=== PATIENT | male | born 1970 ===

== ENCOUNTER 2017-08-02 17:19 | Emergency (ER) | payer MEDICAID, OTHER ==
[2017-08-02 17:19] VITALS: BMI 26.6
[2017-08-02 17:39] VITALS: BP 151/76; RESP 18; TEMP 98.6; O2SAT 99
[2017-08-02 19:01] LABS: BASO # 0.1 K/uL (0.0-0.2); BASO % 1.3 % (0.0-2.0); EOS # 0.3 K/uL (0.0-0.7); EOS % 2.6 % (0.0-4.0); HEMATOCRIT 40.2 % (35.0-51.0); LYMPH # 3.7 K/uL (1.0-4.3); LYMPH % 35.5 % (20.0-40.0); MEAN CELL VOLUME 89.9 fl (80.0-94.0); MEAN CORPUSCULAR HEMOGLOBIN 30.1 pg (27.0-31.0); MEAN CORPUSCULAR HGB CONC 33.5 g/dL (33.0-37.0); MEAN PLATELET VOLUME 9.9 fl (7.2-11.7); MONO # 0.9 K/uL (0.0-0.8); MONO % 8.7 % (0.0-10.0); NEUT # 5.4 K/uL (1.8-7.0); NEUT % 51.9 % (50.0-75.0); NRBC % 3.9 % (0.0-0.0); RED CELL DISTRIBUTION WIDTH 12.9 % (11.5-14.5); WHITE BLOOD COUNT 10.4 K/uL (4.8-10.8)
--- NOTE | 2017-08-02 19:04 | ED PDOC ---
HPI: SOB/CHF/COPD Time Seen by Provider: 08/02/17 17:45 Chief Complaint (Nursing): Shortness Of Breath Chief Complaint (Provider): Shortness Of Breath History Per: Patient History/Exam Limitations: no limitations Onset/Duration Of Symptoms: Hrs Current Symptoms Are (Timing): Gone Now Additional Complaint(s): Deangelo Walter is a 46 year old male with a history of anxiety that presents to the ED with a chief complaint of intermittent feelings of anxiety and shortness of breath that he has been experiencing since this morning. Patient reports that due to his long history of anxiety he used to take Prozac and Paxil , but decided to stop taking the medication on his own. He states that he has been going through a lot of stress recently, and admits to taking heroin today in an attempt "to calm himself." Patient is concerned that he may have a "chemical pneumonia," as he had one last year, but denies any cough, fever, hemoptysis, chest pain, leg pain, suicidal ideation, homicidal ideation, hallucinations, or trauma. He states that he is currently without any symptoms. Past Medical History Reviewed: Historical Data, Nursing Documentation, Vital Signs Vital Signs: Last Vital Signs Temp 98.6 F 08/02/17 17:32 Pulse 49 L 08/02/17 19:29 Resp 18 08/02/17 17:32 BP 151/76 H 08/02/17 17:32 Pulse Ox 99 08/02/17 19:29 - Medical History PMH: Anxiety, Depression, Hepatitis (Hep-C), Post Traumatic Stress Disorder, Schizophrenia Denies: Diabetes, HIV, HTN, Chronic Kidney Disease, Seizures, Sexually Transmitted Disease - Family History Family History: States: Unknown Family Hx - Social History Current smoker - smoking cessation education provided: Yes SMOKER/PACKS PER DAY:: 1 (for the past 20 years) Drugs: Other (heroin) - Immunization History Hx Tetanus Toxoid Vaccination: No Hx Influenza Vaccination: No Hx Pneumococcal Vaccination: No - Home Medications Home Medications: Ambulatory Orders Medication Instructions Recorded No Known Home Med 12/30/16 - Allergies Allergies/Adverse Reactions: Allergies Allergy/AdvReac Type Severity Reaction Status Date / Time No Known Allergies Allergy Verified 02/02/17 14:45 Review of Systems Constitutional: Negative for: Fever, Other (denies trauma) Cardiovascular: Negative for: Chest Pain Respiratory: Positive for: Shortness of Breath (no currently experiencing). Negative for: Cough Gastrointestinal: Negative for: Other (denies hemoptysis) Musculoskeletal: Negative for: Leg Pain Psych: Positive for: Anxiety (no currently experiencing). Negative for: Suicidal ideation (denies SI, HI), Other (denies hallucinations) Physical Exam - Reviewed Nursing Documentation Reviewed: Yes Vital Signs Reviewed: Yes - Physical Exam Appears: Positive for: Non-toxic, No Acute Distress Head Exam: Positive for: ATRAUMATIC, NORMOCEPHALIC Skin: Positive for: Normal Color, Warm Eye Exam: Positive for: Normal appearance, EOMI, PERRL Cardiovascular/Chest: Positive for: Regular Rate, Rhythm. Negative for: Murmur Respiratory: Positive for: Normal Breath Sounds. Negative for: Wheezing Gastrointestinal/Abdominal: Positive for: Normal Exam, Soft. Negative for: Tenderness Extremity: Positive for: Normal ROM. Negative for: Swelling Neurologic/Psych: Positive for: Alert, distribution clerk II-XII, Oriented. Negative for: Motor/Sensory Deficits - Laboratory Results Result Diagrams: 08/02/17 18:40 08/02/17 18:40 - ECG ECG: Positive for: Interpreted By Me ECG Rhythm: Positive for: Sinus Bradycardia. Negative for: ST/T Changes Rate: 49 O2 Sat by Pulse Oximetry: 99 (RA) Pulse Ox Interpretation: Normal - Radiology X-Ray: Interpreted by Me (CXR) X-Ray Interpretation: No Acute Disease - Progress ED Course And Treament: 1927 D-Dimer: 349 CTA chest r/o PE ordered. Medical Decision Making Medical Decision Making: Impression: Anxiety Plan: * EKG * Chest X-Ray * CMP * CBC * D-Dimer * Troponin * Alcohol * Urine drug screen * Reevaluation Scribe Attestation: Documented by Anastacia James, acting as a scribe for Salvatore Bustamante PA-C. Provider Scribe Attestation: All medical record entries made by the Scribe were at my direction and personally dictated by me. I have reviewed the chart and agree that the record accurately reflects my personal performance of the history, physical exam, medical decision making, and the department course for this patient. I have also personally directed, reviewed, and agree with the discharge instructions and disposition. Disposition - Clinical Impression Clinical Impression: Anxiety, Dyspnea - Patient ED Disposition Is Patient to be Admitted: Transfer of Care (Signed out to Anish STOVER pending CTA results and final disposition.) - Disposition Disposition Time: 20:00 Condition: STABLE Forms: [facility] (Slovenian)
[2017-08-02 19:17] LABS: ALB/GLOB RATIO 1.3 (1.0-2.1); ALCOHOL SERUM < 10 mg/dl (0-10); ALKALINE PHOSPHATASE 66 U/L (38-126); ALT/SGPT 45 U/L (21-72); AST/SGOT 38 U/L (17-59); BILIRUBIN,TOTAL 0.4 mg/dl (0.2-1.3); BLOOD UREA NITROGEN 12 mg/dl (9-20); CALCIUM 9.7 mg/dL (8.4-10.2); CARBON DIOXIDE 28 mmol/L (22-30); CHLORIDE 102 mmol/L (98-107); GFR AFRICAN-AMERICAN > 60; GLUCOSE,RANDOM 93 mg/dL (75-110); POTASSIUM 4.4 MMOL/L (3.6-5.0); SODIUM 140 mmol/l (132-148); TOTAL PROTEIN 7.7 G/DL (6.3-8.2)
[2017-08-02 19:30] VITALS: PULSE 49
[2017-08-02] MEDS ORDERED: Iodixanol 320 MG/ML 100 ML BOTTLE IV ONE (20:01)
[2017-08-02] MEDS ORDERED: Sodium Chloride 0.9% 50 ML IV ONE (20:02)
--- NOTE | 2017-08-02 21:12 | CT ---
EXAM: CT Angiography Chest With Intravenous Contrast EXAM DATE/TIME: 08/02/2017 7:28 PM CLINICAL HISTORY: 46 years old, male; Signs and symptoms; Shortness of breath; Additional info: SOB, elevated d-dimer TECHNIQUE: Axial computed tomographic angiography images of the chest with intravenous contrast using pulmonary embolism protocol. All CT scans at this facility use one or more dose reduction techniques, viz.: automated exposure control; ma/kV adjustment per patient size (including targeted exams where dose is matched to indication; i.e. head); or iterative reconstruction technique. MIP reconstructed images were created and reviewed. Coronal and sagittal reformatted images were created and reviewed. CONTRAST: 80 mL of Visipaque administered intravenously. COMPARISON: CT - CHEST W/CONTRAST 07/31/2016 10:55:13 PM FINDINGS: Heart, aorta and Pulmonary arteries: The heart is mildly enlarged. There is no pericardial effusion. Aorta is normal in caliber.There are no pulmonary emboli. Lungs and pleural spaces: Trachea and main bronchi are patent. Lungs are well-inflated. There is no focal consolidation. There small nodular groundglass opacities in the superior aspect of the middle lobe, 4.6 and 4 mm in diameter. There are additional smaller groundglass nodular opacities in the right middle lobe. There is a 3.9 mm pleural-based nodule right base. There is a 3.4 mm pleural-based nodule at the left base. There are no effusions. Mediastinum: Esophagus is unremarkable. There are no pathologically enlarged mediastinal or hilar nodes. There is thymic tissue in the anterior mediastinum. Thyroid: Thyroid is not optimally demonstrated. Bones/joints: There are degenerative changes in the osseus structures. Soft tissues: unremarkable Upper abdomen: There are no acute abnormalities in the visualized portion of the abdomen. IMPRESSION: No aneurysm or pulmonary embolus; small indeterminate pulmonary nodules, no focal pneumonia Footer: As per Fleischner Society guidelines for follow-up and management of pulmonary nodules: For patients at low risk (minimal or absent history of smoking and of other known risk factors), recommend follow-up chest CT at 12 months; if unchanged, no further follow-up. For patient at high risk (history of smoking or of other known risk factors), recommend initial follow-up chest CT at 6-12 months, then at 18-24 months if no interval change.
--- NOTE | 2017-08-02 21:26 | ED PDOC ---
- Laboratory Results Result Diagrams: 08/02/17 18:40 08/02/17 18:40 - ECG O2 Sat by Pulse Oximetry: 99 (RA) - Progress ED Course And Treament: Case endorsed to real estate underwriter from Dianna STOVER pending CTA chest EXAM: CT Angiography Chest With Intravenous Contrast EXAM DATE/TIME: 08/02/2017 7:28 PM CLINICAL HISTORY: 46 years old, male; Signs and symptoms; Shortness of breath; Additional info: SOB, elevated ddimer TECHNIQUE: Axial computed tomographic angiography images of the chest with intravenous contrast using pulmonary embolism protocol. All CT scans at this facility use one or more dose reduction techniques, viz.: automated exposure control; ma/kV adjustment per patient size (including targeted exams where dose is matched to indication; i.e. head); or iterative reconstruction technique. MIP reconstructed images were created and reviewed. Coronal and sagittal reformatted images were created and reviewed. CONTRAST: 80 mL of Visipaque administered intravenously. COMPARISON: CT - CHEST W/CONTRAST 07/31/2016 10:55:13 PM FINDINGS: Heart, aorta and Pulmonary arteries: The heart is mildly enlarged. There is no pericardial effusion. Aorta is normal in caliber.There are no pulmonary emboli. Lungs and pleural spaces: Trachea and main bronchi are patent. Lungs are well- inflated. There is no focal consolidation. There small nodular groundglass opacities in the superior aspect of the middle lobe, 4.6 and 4 mm in diameter. There are additional smaller groundglass nodular opacities in the right middle lobe. There is a 3.9 mm pleural-based nodule right base. There is a 3.4 mm pleuralbased nodule at the left base. There are no effusions. Mediastinum: Esophagus is unremarkable. There are no pathologically enlarged mediastinal or hilar nodes. There is thymic tissue in the anterior mediastinum. Thyroid: Thyroid is not optimally demonstrated. Bones/joints: There are degenerative changes in the osseus structures. Soft tissues: unremarkable Upper abdomen: There are no acute abnormalities in the visualized portion of the abdomen. IMPRESSION: No aneurysm or pulmonary embolus; small indeterminate pulmonary nodules, no focal pneumonia Footer: As per Fleischner Society guidelines for follow-up and management of pulmonary nodules: For patients at low risk (minimal or absent history of smoking and of other known risk factors), recommend follow-up chest CT at 12 months; if unchanged, no further follow-up. For patient at high risk (history of smoking or of other known risk factors), recommend initial follow-up chest CT at 6-12 months, then at 18-24 months if no interval change. Patient educated on findings, discharged with instructions to follow up PMD 2-[address] report given. Smoking cessation advised. Return to ED for worsening/concerning symptoms. Disposition Counseled Patient/Family Regarding: Studies Performed, Diagnosis, Need For Followup, Smoking Cessation - Clinical Impression Clinical Impression: Anxiety, Dyspnea, Indeterminate pulmonary nodules - POA Present On Arrival: None - Disposition Disposition: Routine/Home Disposition Time: 21:28 Condition: IMPROVED Instructions: Anxiety (ED), Dyspnea (ED)
--- NOTE | 2017-08-03 07:47 | RAD ---
HISTORY: SOB COMPARISON: Comparison is made to 12/30/2016 TECHNIQUE: Chest PA and lateral FINDINGS: LUNGS: No evidence of new infiltrate or consolidation in the lungs. PLEURA: No significant pleural effusion identified. No pneumothorax apparent. CARDIOVASCULAR: Normal. OSSEOUS STRUCTURES: No significant abnormalities. VISUALIZED UPPER ABDOMEN: Normal. OTHER FINDINGS: None. IMPRESSION: No active disease. Fifth no significant interval change since the previous exam noted.
--- NOTE | 2017-08-03 11:22 | CARD ---
APPROVED REPORT EKG Measurement Heart [id number] <Conclusion> Sinus bradycardia Minimal voltage criteria for LVH, may be normal variant Borderline ECG
== END 2017-08-02 22:02 | disposition home or self-care (01) ==
LOC: H.ER 17:19
DX: R06.00 Dyspnea, unspecified (principal); F41.9 Anxiety disorder, unspecified; F20.9 Schizophrenia, unspecified; F32.9 Major depressive disorder, single episode, unspecified; F43.10 Post-traumatic stress disorder, unspecified
CPT/HCPCS: 71020; 71275; 80053; 80320; 80324; 80345; 80346; 80349; 80353; 80358; 80361; 83992; 84484; 85025; 85378; 93005; 99284; Q9967

== ENCOUNTER 2018-05-04 13:04 | Emergency (ER) | payer OTHER ==
[2018-05-04 13:04] VITALS: BMI 26.6
[2018-05-04 13:09] VITALS: PULSE 82; RESP 18; O2SAT 100
--- NOTE | 2018-05-04 13:22 | ED PDOC ---
HPI: Wound Care - HPI Time Seen by Provider: 05/04/18 13:12 Chief Complaint (Nursing): Abnormal Skin Integrity Chief Complaint (Provider): abscess History Per: Patient Exam Limitations: no limitations Additional Complaint(s): 47 year old right hand dominant male presents to the ED for an evaluation of abscess on right elbow x 1 week. Patient states he popped abscess the other day and it has been draining since. He denies fever or chills. PMD: Dr. Moses Past Medical History Reviewed: Historical Data, Nursing Documentation, Vital Signs Vital Signs: Last Vital Signs Temp 98.5 F 05/04/18 13:07 Pulse 82 05/04/18 13:07 Resp 18 05/04/18 13:07 BP Pulse Ox 100 05/04/18 13:07 - Medical History PMH: Anxiety, Depression, Hepatitis (Hep-C), Post Traumatic Stress Disorder, Schizophrenia - Surgical History Surgical History: No Surg Hx - Family History Family History: States: No Known Family Hx - Living Arrangements Living Arrangements: With Family - Social History Current smoker - smoking cessation education provided: Yes (Heavy Smoker > 10 Cigarettes Daily) Alcohol: Social Drugs: Opiates (IV heroin) - Home Medications Home Medications: Ambulatory Orders Medication Instructions Recorded Clindamycin [Cleocin] 300 mg PO QID #40 cap 09/05/17 Clotrimazole 1% Cream [Lotrimin 1% 1 applic TOP BID #2 tube 09/05/17 CREAM] Amoxicillin/Clavulanate [Augmentin 1 tab PO BID #14 tab 05/04/18 875 MG-125 MG] Clindamycin [Cleocin] 300 mg PO QID #28 cap 05/04/18 - Allergies Allergies/Adverse Reactions: Allergies Allergy/AdvReac Type Severity Reaction Status Date / Time No Known Allergies Allergy Verified 05/04/18 13:07 Review of Systems ROS Statement: Except As Marked, All Systems Reviewed And Found Negative Constitutional: Negative for: Fever, Chills Skin: Positive for: Other (draining abscess on right elbow) Physical Exam - Reviewed Nursing Documentation Reviewed: Yes Vital Signs Reviewed: Yes - Physical Exam Appears: Positive for: Well, Non-toxic, No Acute Distress Head Exam: Positive for: ATRAUMATIC, NORMAL INSPECTION, NORMOCEPHALIC Skin: Negative for: Rash Eye Exam: Positive for: Normal appearance Extremity: Positive for: Other (3 cm actively draining abscess noted to right olecranon, full range of motion of right elbow noted, no diffuse cellulitis, minimal tenderness to affected area) Neurologic/Psych: Positive for: Alert, Oriented (x3) - ECG O2 Sat by Pulse Oximetry: 100 (RA) Pulse Ox Interpretation: Normal Medical Decision Making Medical Decision Making: Time: 1321 Initial Impression: 47 year old male with right elbow abscess Initial Plan: Abscess is actively draining and no incision and drainage indicated at this time. Patient will be discharged with Augmentin 875mg-125mg and Clindamycin 300 mg for skin abscess. Advised warm compresses to affected area and ibuprofen for pain. Patient was instructed to have the wound reevaluated in 2-3 days. Scribe Attestation: Documented by Annabel Jimenez, acting as a scribe for Imelda Hills PA-C. Provider Scribe Attestation: All medical record entries made by the Scribe were at my direction and personally dictated by me. I have reviewed the chart and agree that the record accurately reflects my personal performance of the history, physical exam, medical decision making, and the department course for this patient. I have also personally directed, reviewed, and agree with the discharge instructions and disposition. Disposition - Clinical Impression Clinical Impression: Abscess - Patient ED Disposition Is Patient to be Admitted: No Counseled Patient/Family Regarding: Diagnosis, Need For Followup, Rx Given - Disposition Referrals: Campbell Moses DO [Family Provider] - Disposition: Routine/Home Disposition Time: 13:21 Condition: STABLE Additional Instructions: Apply warm compresses with Epsom salts to affected area as often as possible. Ibuprofen for pain as needed. Take prescription meds as directed. Follow-up with primary doctor in 2-3 days for wound recheck. Prescriptions: Amoxicillin/Clavulanate [Augmentin 875 MG-125 MG] 1 tab PO BID #14 tab Clindamycin [Cleocin] 300 mg PO QID #28 cap Instructions: Skin Abscess Forms: [facility] ([place] Island[place])
[2018-05-04 13:32] VITALS: TEMP 98.4
== END 2018-05-04 13:29 | disposition home or self-care (01) ==
LOC: H.ER 13:04
DX: L02.413 Cutaneous abscess of right upper limb (principal); Z86.59 Personal history of other mental and behavioral disorders; F17.210 Nicotine dependence, cigarettes, uncomplicated; F43.10 Post-traumatic stress disorder, unspecified; B19.20 Unspecified viral hepatitis C without hepatic coma

== ENCOUNTER 2019-04-24 17:29 | Emergency (ER) | payer MEDICAID, OTHER ==
[2019-04-24 17:30] VITALS: BMI 26.6
[2019-04-24 17:55] VITALS: RESP 16
--- NOTE | 2019-04-24 18:18 | ED PDOC ---
HPI: Abdomen Time Seen by Provider: 04/24/19 18:02 Chief Complaint (Nursing): GI Problem Chief Complaint (Provider): Constipation History Per: Patient History/Exam Limitations: no limitations Onset/Duration Of Symptoms: Days Additional Complaint(s): 48 year old male presents to ED with constipation x1 week. Patient is on Suboxone for treatment of heroin and this is the first time he experienced constipation as a side effect. He took stool softener, milk of magnesia, Pepto Bismol with no relief. Patient states he has headache from strain and had very small bowel movement. He did not see PMD SCENE PAINTER for constipation. PMD: Crispin Cortes Past Medical History Reviewed: Historical Data, Nursing Documentation, Vital Signs Vital Signs: Last Vital Signs Temp 98.5 F 04/24/19 17:54 Pulse 73 04/24/19 17:54 Resp 16 04/24/19 17:54 BP 115/69 04/24/19 17:54 Pulse Ox 97 04/24/19 17:54 Primary Care Provider: Crispin Cortes - Medical History PMH: Anxiety, Depression, Diabetes, Hepatitis (Hep-C), Post Traumatic Stress Disorder, Schizophrenia Denies: HIV, HTN, Chronic Kidney Disease, Seizures, Sexually Transmitted Disease - Surgical History Surgical History: No Surg Hx - Family History Family History: States: Unknown Family Hx - Immunization History Hx Tetanus Toxoid Vaccination: No Hx Influenza Vaccination: No Hx Pneumococcal Vaccination: No - Home Medications Home Medications: Ambulatory Orders Medication Instructions Recorded Clindamycin [Cleocin] 300 mg PO QID #40 cap 09/05/17 Clotrimazole 1% Cream [Lotrimin 1% 1 applic TOP BID #2 tube 09/05/17 CREAM] Amoxicillin/Clavulanate [Augmentin 1 tab PO BID #14 tab 05/04/18 875 MG-125 MG] Clindamycin [Cleocin] 300 mg PO QID #28 cap 05/04/18 Gabapentin [Neurontin] 300 mg PO TID #90 cap 11/16/18 Sertraline [Zoloft] 50 mg PO DAILY #30 tab 11/16/18 risperiDONE [RisperDAL Tab] 1 mg PO HS #30 tab 11/16/18 traZODone [Desyrel] 50 mg PO HS #30 tab 11/16/18 - Allergies Allergies/Adverse Reactions: Allergies Allergy/AdvReac Type Severity Reaction Status Date / Time No Known Allergies Allergy Verified 04/24/19 17:51 Review of Systems ROS Statement: Except As Marked, All Systems Reviewed And Found Negative Gastrointestinal: Positive for: Constipation Neurological: Positive for: Headache Physical Exam - Reviewed Nursing Documentation Reviewed: Yes Vital Signs Reviewed: Yes - Physical Exam Appears: Positive for: Well, Non-toxic, No Acute Distress Head Exam: Positive for: ATRAUMATIC, NORMAL INSPECTION, NORMOCEPHALIC Skin: Positive for: Normal Color, Warm, Dry Eye Exam: Positive for: EOMI, Normal appearance, PERRL ENT: Positive for: Normal ENT Inspection Neck: Positive for: Normal, Painless ROM, Supple Cardiovascular/Chest: Positive for: Regular Rate, Rhythm. Negative for: Murmur Respiratory: Positive for: Normal Breath Sounds. Negative for: Respiratory Distress Gastrointestinal/Abdominal: Positive for: Normal Exam, Soft. Negative for: Tenderness Back: Positive for: Normal Inspection. Negative for: L CVA Tenderness, R CVA Tenderness, Vertebral Tenderness Extremity: Positive for: Normal ROM. Negative for: Pedal Edema, Deformity Neurological/Psych: Positive for: Awake, Alert, Normal Tone, Oriented (x3). Negative for: Motor/Sensory Deficits - ECG O2 Sat by Pulse Oximetry: 97 (RA) Pulse Ox Interpretation: Normal Medical Decision Making Medical Decision Making: Time: 1809 Initial Impression: constipation Ddx: SBO Initial Plan: --Fleet Enema --KUB Scribe Attestation: Documented by Sherwin Tariq acting as a scribe for Fox Mae MD. Provider Scribe Attestation: All medical record entries made by the Scribe were at my direction and per sonally dictated by me. I have reviewed the chart and agree that the record accurately reflects my personal performance of the history, physical exam, medical decision making, and the department course for this patient. I have also personally directed, reviewed, and agree with the discharge instructions and disposition. Disposition - Disposition
[2019-04-24 20:14] VITALS: BP 121/74; PULSE 76; TEMP 98.3; O2SAT 99
--- NOTE | 2019-04-25 15:15 | RAD ---
Date of service: 04/24/2019 HISTORY: constipation COMPARISON: None available. TECHNIQUE: 1 view obtained. FINDINGS: BOWEL: Constipation without fecal impaction or obstruction. BONES: Normal. OTHER FINDINGS: None. IMPRESSION: Constipation without impaction or obstruction.
== END 2019-04-24 20:14 | disposition home or self-care (01) ==
LOC: H.ER 17:29
DX: K56.609 Unspecified intestinal obstruction, unspecified as to partial versus complete obstruction (principal)